=== PATIENT | male | born 1965 | race Caucasian/White ===

== ENCOUNTER 2023-09-05 10:07 | Emergency (ER) | payer BC ==
[2023-09-05] MEDS ORDERED: ONDANSETRON 4 MG/2 ML VIAL ONE (10:29)
[2023-09-05] MEDS ORDERED: FAMOTIDINE 20 MG/2 ML VIAL IV ONE (10:29)
[2023-09-05] MEDS ORDERED: NA CHLORIDE 0.9% 1,000 ML ONE (10:29)
[2023-09-05] MEDS ORDERED: KETOROLAC 30 MG/ML INJ ONE (10:29)
[2023-09-05 10:39] LABS: Absolute Lymphocytes (CBC) 0.2 K/uL (0.7-4.9); Absolute Monocytes 0.4 K/uL (0.1-1.3); Absolute Neutrophil 8.9 K/uL (1.8-8.0); Basophils % 0.2 % (0-1.3); Eosinophils % 0.1 % (0-4.4); Hematocrit 45.4 % (39.6-49.0); Hemoglobin 15.6 g/dL (13.6-17.9); Lymphocytes % 2.4 % (15.3-44.8); MCH 30.6 pg (27.0-35.0); MCHC 34.4 g/dL (32.0-36.0); MCV 89.2 fL (80-100); MPV 8.1 fL (7.6-11.3); Monocytes % 4.2 % (3.3-12.3); Neutrophils % 93.1 % (41.7-73.7); Platelets 280 thou/uL (152-406); RBC Red Blood Cell Count 5.09 M/uL (4.33-5.43); Red Cell Distribution Width 13.9 % (12.1-15.2)
--- NOTE | 2023-09-05 10:50 | RAD REPORT ---
EXAM DESCRIPTION: [facility]Stone Protocol - 09/05/2023 10:41 am CLINICAL HISTORY: FLANK PAIN COMPARISON: No comparisons TECHNIQUE: CT of the abdomen and pelvis was performed. All CT scans are performed using dose optimization technique as appropriate and may include automated exposure control or mA/KV adjustment according to patient size. FINDINGS: Lower chest: No acute abnormality. Liver: Hepatic steatosis. Biliary: No biliary ductal dilatation. Stomach: No significant focal abnormality. Duodenum: No significant focal abnormality. Pancreas: No significant abnormality. Spleen: No significant abnormality. Adrenal: No suspicious lesions. Kidney/ureter: No hydronephrosis. No renal calculi. Right upper pole renal cyst. Retroperitoneum: No retroperitoneal adenopathy. Vascular: No aneurysm. Bowel: Fluid present within the small bowel and colon.. Appendectomy. Diverticulosis without divertic ulitis. Peritoneum: No ascites or free air. Prior ventral hernia repair. Bladder: Grossly unremarkable. Reproductive: Mild prostatomegaly. Bones: Severe disc height loss at L5-S1. Neural foraminal narrowing is present bilaterally. Mild to m oderate disc height loss at L4-5. Other: n/a IMPRESSION: No renal or ureteral calculi identified. Possible gastroenteritis. No bowel obstruction. Prior appendectomy.
[2023-09-05 10:56] LABS: Albumin 3.9 g/dL (3.4-5.0); Albumin/Globulin Ratio 1.1 (1.1-1.8); Anion Gap 9.5 mEq/L (5.0-15.0); Globulin 3.5 g/dL (2.3-3.5); Potassium 4.5 mEq/L (3.5-5.1); Protein, Total 7.4 g/dL (6.4-8.2)
[2023-09-05 11:19] LABS: Blood Morphology Comment NOT SEEN (NOT SEEN); Platelet Estimate ADEQ; White Blood Cell Scan OK (OK)
--- NOTE | 2023-09-05 12:09 | ER ---
Nurse's Notes [facility] Name: Sang Amin Age: 57 yrs Sex: Male : 1965 Arrival Date: 09/05/2023 Time: 10:07 Bed 16 Private MD: Diagnosis: Noninfective gastroenteritis and colitis, unspecified Presentation: 09/04 10:22 Chief complaint: Patient states: Vomiting/diarrhea since yesterday. Thinks he may have nj1 had food poisoning. Back pain since yesterday. Slightly nauseous. Coronavirus screen: Vaccine status: Patient reports receiving the 2nd dose of the covid vaccine. Ebola Screen: Patient denies travel to an Ebola-affected area in the 21 days before illness onset. Initial Sepsis Screen: Does the patient meet any 2 criteria? HR > 90 bpm. No. Patient's initial sepsis screen is negative. Does the patient have a suspected source of infection? No. Patient's initial sepsis screen is negative. Risk Assessment: Do you want to hurt yourself or someone else? Patient reports no desire to harm self or others. Onset of symptoms was September 04, 2023. 10:22 Method Of Arrival: Ambulatory [facility] 10:22 Acuity: PARVIN 2 nj1 Historical: - Allergies: 10:25 No Known Allergies; nj1 - PMHx: 10:25 Hypertensive disorder; Arthritis; Gastric reflux; nj1 - PSHx: 10:25 Appendectomy; Hernia repair; Back surgery; nj1 - Immunization history:: Client reports receiving the 2nd dose of the Covid vaccine. - Infectious Disease History:: Denies. - Social history:: Smoking status: Patient denies any tobacco usage or history of. Screenin:38 [facility] ED Fall Risk Assessment (Adult) History of falling in the last 3 months, ph including since admission No falls in past 3 months (0 pts) Confusion or Disorientation No (0 pts) Intoxicated or Sedated No (0 pts) Impaired Gait No (0 pts) Mobility Assist Device Used No (0 pt) Altered Elimination No (0 pt) Score/Fall Risk Level 0 - 2 = Low Risk Oriented to surroundings, Maintained a safe environment, Hourly rounding (assess needs \T\ fall precautionary measures) done. Abuse screen: Denies threats or abuse. Denies injuries from another. Nutritional screening: No deficits noted. Tuberculosis screening: No symptoms or risk factors identified. Assessment: 10:37 General: Appears in no apparent distress. uncomfortable, well groomed, Behavior is ph cooperative, appropriate for age, anxious. Pain: Complains of pain in right mid back and right low back. Neuro: Level of Consciousness is awake, alert, obeys commands, Oriented to person, place, time, situation. Cardiovascular: Capillary refill < 3 seconds in bilateral fingers. Respiratory: Airway is patent Respiratory effort is even, unlabored. GI: Abdomen is non-distended, Bowel sounds present X 4 quads. Reports diarrhea, nausea, vomiting. Derm: Skin is pink, warm \T\ dry. Vital Signs: 10:22 BP 131 / 76; Pulse 135; Resp 18; Temp 98.4(O); Pulse Ox 95% ; Weight 83.91 kg; Height 5 nj1 ft. 7 in. ; Pain 10/10; 11:13 BP 118 / 89; Pulse 112; Resp 17; Temp 97.9(O); Pulse Ox 98% on R/A; mc5 10:22 Body Mass Index 28.97 (83.91 kg, 170.18 cm) nj1 10:22 Pain Scale: Adult nj ED Course: 10:09 Patient arrived in ED. rg4 10:09 [facility]ill[facility]C [facility] kb 10:09 Nimesh Rowan MD is Attending Physician. kb 10:25 Triage completed. nj1 10:26 Usha Art, RN is Primary Nurse. ph 10:26 Arm band placed on right wrist. nj1 10:35 Inserted saline lock: 20 gauge in left antecubital area, using aseptic technique. Blood mc5 collected. 10:38 Patient has correct armband on for positive identification. Bed in low position. Call ph light in reach. Side rails up X 1. Pulse ox on. NIBP on. Door closed. Noise minimized. Warm blanket given. 10:[address] via wheelchair. hb 10:42 CT Stone Protocol In Process Unspecified. EDMS 11:14 PO fluids given. patient tolerated well. mc5 12:45 No provider procedures requiring assistance completed. IV discontinued, intact, ph bleeding controlled, No redness/swelling at site. Pressure dressing applied. Administered Medications: 10:36 Drug: Famotidine IVP 20 mg IVP once; dilute with 10 mL 0.9% NaCl; give over 2 minutes ph Route: IVP; Site: left antecubital; 10:37 Drug: NS 0.9% IV 1000 ml IV at 1 bolus Per protocol; 1000 mL bolus Route: IV; Rate: 1 ph bolus; Site: left antecubital; 10:37 Drug: TORadol - Ketorolac IVP 15 mg IVP once Route: IVP; Site: left antecubital; ph 10:37 Drug: Ondansetron IVP 4 mg IVP once; over 2 minutes Route: IVP; Site: left antecubital; ph 12:45 Drug: Promethazine PO 25 mg PO once Route: PO; ph Medication: 10:38 VIS not applicable for this client. ph Outcome: 12:08 Discharge ordered by . kb 12:48 Discharged to home ambulatory, with significant other, ph 12:48 Condition: good 12:48 Discharge instructions given to patient, Instructed on discharge instructions, follow up and referral plans. medication usage, Demonstrated understanding of instructions, follow-up care, medications, Prescriptions given X 2, 12:48 Patient left the ED. ph Signatures: Dispatcher [employer] EDMS Flor Santillan, ACCOUNT SERVICES ANALYST-C ACCOUNT SERVICES ANALYST-Usha Cordova RN RN Luci Puentes RN RN Gisell Borrego rg4 Jessenia Cordova RN RN nj1 Lani Bland 5 Corrections: (The following items were deleted from the chart) 10:25 10:22 Acuity: PARVIN 3 nj1 nj1
--- NOTE | 2023-09-05 12:09 | EDPHYS ---
Physician Documentation [facility] Name: Sang Amin Age: 57 yrs Sex: Male : 1965 Arrival Date: 09/05/2023 Time: 10:07 Bed 16 Private MD: ED Physician Nimesh Rowan HPI: 09/04 12:03 This 57 yrs old Male presents to ER via Ambulatory with complaints of Abdominal Pain, kb Vomiting/Diarrhea. 12:03 Pt is a 57 year old male who presents with n/v/d and right flank pain that started last kb night and has gotten worse. Believes it is due to a bad food exposure. No alleviating or aggravating factors. Denies fever. Historical: - Allergies: 10:25 No Known Allergies; nj1 - PMHx: 10:25 Hypertensive disorder; Arthritis; Gastric reflux; nj1 - PSHx: 10:25 Appendectomy; Hernia repair; Back surgery; nj1 - Immunization history:: Client reports receiving the 2nd dose of the Covid vaccine. - Infectious Disease History:: Denies. - Social history:: Smoking status: Patient denies any tobacco usage or history of. ROS: 11:57 Constitutional: As per HPI kb Exam: 11:57 Constitutional: This is a well developed, well nourished patient who is awake, alert, kb and in no acute distress. Head/Face: Normocephalic, atraumatic. ENT: Moist Mucous membranes Cardiovascular: Regular rate Respiratory: Respirations even and unlabored. No increased work of breathing. Talking in full sentences Back: No spinal tenderness. No costovertebral tenderness. Full range of motion. Skin: Warm, dry with normal turgor. Normal color. MS/ Extremity: Pulses equal, no cyanosis. Neurovascular intact. Full, normal range of motion. Neuro: Awake and alert, GCS 15, oriented to person, place, time, and situation. Moves all extremities. Normal gait. 11:57 Abdomen/GI: Inspection: abdomen appears normal, Bowel sounds: normal, Palpation: soft, in all quadrants, mild abdominal tenderness, in all quadrants, Vital Signs: 10:22 BP 131 / 76; Pulse 135; Resp 18; Temp 98.4(O); Pulse Ox 95% ; Weight 83.91 kg; Height 5 nj1 ft. 7 in. ; Pain 10/10; 11:13 BP 118 / 89; Pulse 112; Resp 17; Temp 97.9(O); Pulse Ox 98% on R/A; mc5 10:22 Body Mass Index 28.97 (83.91 kg, 170.18 cm) nj1 10:22 Pain Scale: Adult nj1 MDM: 10:09 Patient medically screened. kb 11:59 Differential diagnosis: gastroesophageal reflux disease, non-specific abd pain, kb pancreatitis, Ureterolithiasis, gastroenteritis. Data reviewed: vital signs, nurses notes. Counseling: I had a detailed discussion with the patient and/or guardian regarding the historical points, exam findings, and any diagnostic results supporting the discharge/admit diagnosis, lab results, radiology results, the need for outpatient follow up, a family practitioner, to return to the emergency department if symptoms worsen or persist or if there are any questions or concerns that arise at home. 09/04 10:22 Order name: CBC with Diff; Complete Time: 11:23 kb 09/04 10:22 Order name: CMP; Complete Time: 10:58 kb 09/04 10:22 Order name: Lipase; Complete Time: 10:58 kb 09/04 10:43 Order name: CBC Smear Scan; Complete Time: 11:23 EDMS 09/04 10:22 Order name: CT Stone Protocol; Complete Time: 10:55 kb 09/04 10:22 Order name: IV Saline Lock; Complete Time: 10:35 kb 09/04 10:22 Order name: Labs collected and sent; Complete Time: 10:35 kb 09/04 10:58 Order name: Vital Signs; Complete Time: 11:13 kb 09/04 10:58 Order name: PO challenge; Complete Time: 11:13 kb Administered Medications: 10:36 Drug: Famotidine IVP 20 mg IVP once; dilute with 10 mL 0.9% NaCl; give over 2 minutes ph Route: IVP; Site: left antecubital; 10:37 Drug: NS 0.9% IV 1000 ml IV at 1 bolus Per protocol; 1000 mL bolus Route: IV; Rate: 1 ph bolus; Site: left antecubital; 10:37 Drug: TORadol - Ketorolac IVP 15 mg IVP once Route: IVP; Site: left antecubital; ph 10:37 Drug: Ondansetron IVP 4 mg IVP once; over 2 minutes Route: IVP; Site: left antecubital; ph 12:45 Drug: Promethazine PO 25 mg PO once Route: PO; ph Disposition Summary: 09/05/23 12:08 Discharge Ordered Notes: Location: Home kb Condition: Stable kb Diagnosis - Noninfective gastroenteritis and colitis, unspecified kb Followup: kb - With: Emergency Department - When: As needed - Reason: Worsening of condition Followup: kb - With: Private Physician - When: 2 - 3 days - Reason: Recheck today's complaints, Continuance of care, Re-evaluation by your physician Discharge Instructions: - Discharge Summary Sheet kb - Viral Gastroenteritis, Adult kb Forms: - Medication Reconciliation Form kb - Thank You Letter kb - Antibiotic Education kb - Prescription Opioid Use kb - Patient Portal Instructions kb - Leadership Thank You Letter kb Prescriptions: - Zofran 4 mg Oral tablet - take 1 tablet ORAL route every 6 hours As needed; 12 tablet; Refills: 0, kb Product Selection Permitted - dicyclomine 20 mg Oral tablet - take 1 tablet ORAL route 4 times per day As needed; 20 tablet; Refills: 0, kb Product Selection Permitted Signatures: Dispatcher [employer] EDMS Flor Santillan, LINE AND FRAME POLER-C LINE AND FRAME POLER-Usha Cordova RN RN Jessenia Cordova RN RN nj1 Corrections: (The following items were deleted from the chart) 10:23 10:23 CBC+H.LAB.BRZ ordered. EDMS EDMS 10:23 10:23 COMPREHENSIVE METABOLIC PANEL+C.LAB.BRZ ordered. EDMS EDMS 10:23 10:23 LIPASE+C.LAB.BRZ ordered. EDMS EDMS 10:23 10:23 Urinalysis+U.LAB.BRZ ordered. EDMS EDMS
[2023-09-05] MEDS ORDERED: PROMETHAZINE 25 MG TABLET ONE (12:21)
[2023-09-05 15:54] VITALS: BP 118/89; TEMP 97.9; O2SAT 98
== END 2023-09-05 12:48 | disposition home or self-care (01) ==
LOC: ER 10:07
DX: K52.9 Noninfective gastroenteritis and colitis, unspecified (principal)
CPT/HCPCS: 85025; 36415; 83690; 80053; 76377; 74176; 96375; 96374; 99285; Q0169; J2405; J7030

== ENCOUNTER 2025-01-05 08:14 | Day surgery (SDC) | payer BC ==
[2025-01-05 08:32] LABS: Absolute Lymphocytes (CBC) 1.3 K/uL (0.7-4.9); Hematocrit 41.0 % (39.6-49.0); Hemoglobin 14.4 g/dL (13.6-17.9); MCH 31.0 pg (27.0-35.0); MCHC 35.0 g/dL (32.0-36.0); MCV 88.5 fL (80-100); MPV 8.5 fL (7.6-11.3); Nucleated RBC Absolute Count 0.0 (0-0); Nucleated Red Blood Cells % 0.1 % (0-0); RBC Red Blood Cell Count 4.63 M/uL (4.33-5.43); White Blood Count 5.40 thou/uL (4.3-10.9)
[2025-01-05 08:38] LABS: Anion Gap 7.0 mEq/L (5.0-15.0); BUN Blood Urea Nitrogen 21.0 mg/dL (7-18); Glucose Level 107.0 mg/dL (74-106); Potassium 4.0 mEq/L (3.5-5.1)
[2025-01-05] MEDS: Ringers Lactate 1,000 ML IV ONE (08:48)
[2025-01-05] MEDS ORDERED: LIDOCAINE 1% MPF 5 ML VIAL ONE (10:15)
[2025-01-05] MEDS ORDERED: GLYCOPYRROLATE 0.2 MG/ML SYR ONE (11:19)
[2025-01-05 12:23] VITALS: O2SAT 100
[2025-01-05 12:28] VITALS: BP 131/63; TEMP 97.5
== END 2025-01-05 11:55 | disposition home or self-care (01) ==
LOC: OR 08:14
PROVIDERS: ATTEND Surgery
PROC: 0DB78ZX Excision of Stomach, Pylorus, Via Natural or Artificial Opening Endoscopic, Diagnostic (ICD-10-PCS; 2025-01-05)
PROC: 0DB68ZX Excision of Stomach, Via Natural or Artificial Opening Endoscopic, Diagnostic (ICD-10-PCS; 2025-01-05)
PROC: 0DB48ZX Excision of Esophagogastric Junction, Via Natural or Artificial Opening Endoscopic, Diagnostic (ICD-10-PCS; 2025-01-05)
PROC: 0DBN8ZX Excision of Sigmoid Colon, Via Natural or Artificial Opening Endoscopic, Diagnostic (ICD-10-PCS; principal; 2025-01-05 09:30)
PROC: 0DB98ZX Excision of Duodenum, Via Natural or Artificial Opening Endoscopic, Diagnostic (ICD-10-PCS; 2025-01-05 09:30)
DX: Z12.11 Encounter for screening for malignant neoplasm of colon (principal); K21.9 Gastro-esophageal reflux disease without esophagitis; K57.30 Diverticulosis of large intestine without perforation or abscess without bleeding; K52.9 Noninfective gastroenteritis and colitis, unspecified; K64.8 Other hemorrhoids; N42.9 Disorder of prostate, unspecified; K29.50 Unspecified chronic gastritis without bleeding; K21.00 Gastro-esophageal reflux disease with esophagitis, without bleeding
CPT/HCPCS: 93005; 85025; 80048; 36415; 88312; 88305 ×2; 45380; 43239; J2704; J2003; J7120